=== PATIENT | male | born 2005 | race Caucasian/White ===

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

== ENCOUNTER → 2024-10-08 | Outpatient (CLI) | payer BC ==
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
== END | disposition home or self-care (01) ==
LOC: RADUSWWP 07:54
PROVIDERS: ATTEND Family Medicine
DX: K76.0 Fatty (change of) liver, not elsewhere classified (principal); R94.5 Abnormal results of liver function studies
CPT/HCPCS: 76700

== ENCOUNTER 2025-03-30 09:03 | Emergency (ER) | payer BC, OTHER ==
[2025-03-30 09:09] VITALS: RESP 18
[2025-03-30] MEDS: ACETAMINOPHEN TAB 500 MG TAB PO STA (09:38)
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
[2025-03-30 10:33] VITALS: BP 129/86; PULSE 84; TEMP 98.1
== END 2025-03-30 10:32 | disposition home or self-care (01) ==
LOC: EC 09:03
DX: S01.01XA Laceration without foreign body of scalp, initial encounter (principal); S50.812A Abrasion of left forearm, initial encounter; S50.811A Abrasion of right forearm, initial encounter; Z88.0 Allergy status to penicillin; Z87.891 Personal history of nicotine dependence; V89.2XXA Person injured in unspecified motor-vehicle accident, traffic, initial encounter; Y92.410 Unspecified street and highway as the place of occurrence of the external cause
CPT/HCPCS: 12002; 99284